=== PATIENT | male | born 1940 | race Caucasian/White ===

== ENCOUNTER 2020-12-31 09:25 | Outpatient (CLI) | payer MEDICARE | END 2020-12-31 09:26 | disposition home or self-care (01) | LOC: CSHCT 09:25 | PROVIDERS: ATTEND Physician Assistant Medical | DX: R10.32 Left lower quadrant pain (principal); K59.00 Constipation, unspecified; K21.9 Gastro-esophageal reflux disease without esophagitis | CPT/HCPCS: 74177; 82565 ==